=== PATIENT | male | born 1995 | race Caucasian/White ===

== ENCOUNTER 2017-11-08 17:06 | Emergency (ER) | payer OTHER ==
[~2017-11-08] VITALS: Ht 175.3 cm; Wt 59.4 kg
[2017-11-08 17:34] VITALS: BP 125/83
[2017-11-08] MEDS ORDERED: PENI500T2 PO (18:11)
[2017-11-08] MEDS ORDERED: IBUP-1984 PO (18:11)
== END 2017-11-08 18:20 | disposition home or self-care (01) ==
LOC: ER 17:07
DX: K08.89 Other specified disorders of teeth and supporting structures (principal); F17.200 Nicotine dependence, unspecified, uncomplicated; Z79.2 Long term (current) use of antibiotics; Z79.1 Long term (current) use of non-steroidal anti-inflammatories (NSAID)
CPT/HCPCS: 99283

== ENCOUNTER 2018-11-19 01:26 | Emergency (ER) | payer MEDICAID ==
[~2018-11-19] VITALS: Ht 175.3 cm; Wt 60.5 kg
[2018-11-19 01:41] VITALS: BP 158/76
[2018-11-19] MEDS ORDERED: CEPH-572 PO (02:03)
[2018-11-19] MEDS ORDERED: SULF1TAB49 PO (02:03)
[2018-11-19] MEDS ORDERED: sulfamethoxazole/trimethoprim DS (800/160mg) tablet PO ONE (02:05)
[2018-11-19] MEDS ORDERED: cephalexin 250mg capsule PO ONE (02:05)
== END 2018-11-19 02:37 | disposition home or self-care (01) ==
LOC: ER 01:27
DX: A49.02 Methicillin resistant Staphylococcus aureus infection, unspecified site (principal); F17.200 Nicotine dependence, unspecified, uncomplicated; Z60.2 Problems related to living alone; Z59.0 Homelessness; Z56.0 Unemployment, unspecified; Z79.899 Other long term (current) drug therapy
CPT/HCPCS: 99284

== ENCOUNTER 2023-03-05 14:43 | Emergency (ER) | payer MEDICAID ==
[~2023-03-05] VITALS: Ht 177.8 cm; Wt 68.4 kg
[2023-03-05 14:50] VITALS: BP 146/96; PULSE 113; RESP 16; TEMP 97.9; O2SAT 100
[2023-03-05] MEDS ORDERED: AMOX-106 PO (14:54)
[2023-03-05] MEDS ORDERED: IBUP-1984 PO (14:54)
== END 2023-03-05 15:47 | disposition home or self-care (01) ==
LOC: ER 14:44
DX: K04.7 Periapical abscess without sinus (principal); Z79.1 Long term (current) use of non-steroidal anti-inflammatories (NSAID); Z79.2 Long term (current) use of antibiotics
CPT/HCPCS: 99283